=== PATIENT | male | born 1990 | race Caucasian/White ===

== ENCOUNTER 2022-10-21 05:24 | Day surgery (SDC) | payer OTHER ==
[~2022-10-21 05:24] MED LIST: RINGERS SOLUTION,LACTATED 1,000 ML IV ONE
[2022-10-21] MEDS ORDERED: ETHYL ALCOHOL 62% ANTISEPTIC NASAL SANITIZER 0.6 ML AMPUL NASAL ONE (05:30)
[2022-10-21] MEDS ORDERED: SODIUM CL IRRIG SOLN BAG 9,000 ML IRRIG ONE (05:33)
[2022-10-21] MEDS ORDERED: SODIUM CL IRRIG SOLN BAG 3,000 ML IRRIG ONE (05:34)
[2022-10-21] MEDS ORDERED: LAMO25TA36 PO (05:45)
[2022-10-21] MEDS ORDERED: LEVE750T10 PO (05:45)
[2022-10-21] MEDS ORDERED: BUPIVACAINE/EPI/PF 0.5% 30 ML VIAL ONE (05:45)
[2022-10-21] MEDS ORDERED: DICL100G60 TP (05:45)
[2022-10-21] MEDS ORDERED: VANCOMYCIN HCL 1 GM/VIAL ONE (07:19)
[2022-10-21] MEDS ORDERED: MUPIROCIN CALCIUM 2% 22 GM OINTMENT ONE (07:20)
[2022-10-21] MEDS ORDERED: BUPIVACAINE LIPOSOME/PF 1.3%-13.3MG/ML SUSPENSION 10 ML VIAL INJ ONE (07:30)
[2022-10-21] MEDS ORDERED: BUPIVACAINE LIPOSOME/PF 1.3%-13.3MG/ML SUSPENSION 20 ML VIAL INJ ONE (07:30)
[2022-10-21] MEDS ORDERED: MEPERIDINE-PF 25 MG/ML VIAL IVP PRN (09:00)
[2022-10-21] MEDS ORDERED: MEPERIDINE-PF 25 MG/ML VIAL ONE (09:04)
[2022-10-21] MEDS ORDERED: FentaNYL CITRATE PF 100 MCG/2 ML VIAL ONE (09:07)
[2022-10-21] MEDS: FentaNYL CITRATE PF 100 MCG/2 ML VIAL IVP PRN ×2 (09:11→09:20)
[2022-10-21] MEDS ORDERED: HYDROmorphone HCL 2 MG/ML SYRINGE ONE (09:26)
[2022-10-21] MEDS: HYDROmorphone HCL 2 MG/ML SYRINGE IVP PRN ×6 (09:44→10:48)
[2022-10-21] MEDS ORDERED: CeFAZolin 1 GM/DEXTROSE 50 ML IV ONE ×2 (10:00→10:09)
[2022-10-21] MEDS ORDERED: HYDROCODONE/ACETAMINOPHEN 10-325 MG TABLET PO ONE (11:30)
[2022-10-21] MEDS ORDERED: ONDANSETRON HCL 4 MG/2 ML VIAL IVP ONE (12:00)
[2022-10-21] MEDS ORDERED: DEXAMETHASONE SOD PHOS 4 MG/ML VIAL IVP ONE (12:00)
[2022-10-21] MEDS ORDERED: SUGAMMADEX SODIUM 200 MG/2 ML VIAL IVP ONE (12:00)
[2022-10-21] MEDS ORDERED: PROPOFOL 1% 20 ML VIAL IVP ONE (12:00)
[2022-10-21] MEDS ORDERED: ACETAMINOPHEN/ISO-OSM 1000 MG/100 ML BOTTLE IV ONE (12:00)
[2022-10-21] MEDS ORDERED: 0.9% SODIUM CHLORIDE 10 ML VIAL IVP ONE (12:00)
[2022-10-21] MEDS ORDERED: MORPHINE SULFATE/PF 0.5 MG/ML 10 ML AMP IVP ONE (12:00)
[2022-10-21] MEDS ORDERED: CeFAZolin SODIUM 1 GM VIAL IVP ONE (12:00)
[2022-10-21] MEDS ORDERED: LIDOCAINE/PF 2% 5 ML VIAL IM ONE (12:00)
[2022-10-21] MEDS ORDERED: FentaNYL CITRATE PF 100 MCG/2 ML VIAL IVP ONE (12:00)
[2022-10-21] MEDS ORDERED: MIDAZOLAM HCL 2 MG/2 ML VIAL IVP ONE (12:00)
[2022-10-21] MEDS ORDERED: ROCURONIUM BROMIDE 10 MG/ML 5 ML VIAL IVP ONE (12:00)
[2022-10-21] MEDS ORDERED: KETOROLAC TROMETHAMINE 60 MG/2 ML VIAL IM ONE (12:00)
[2022-10-21] MEDS ORDERED: OXYGEN THERAPY IH SCH (20:00)
== END 2022-10-21 12:15 | disposition home or self-care (01) ==
LOC: SURGERY 05:24
PROVIDERS: ATTEND Orthopaedic Surgery
DX: S43.402A Unspecified sprain of left shoulder joint, initial encounter (principal); M65.812 Other synovitis and tenosynovitis, left shoulder; D16.02 Benign neoplasm of scapula and long bones of left upper limb; G89.29 Other chronic pain; M19.012 Primary osteoarthritis, left shoulder; X58.XXXA Exposure to other specified factors, initial encounter; Y93.89 Activity, other specified; Y92.89 Other specified places as the place of occurrence of the external cause; Y99.8 Other external cause status
CPT/HCPCS: 29823; 88305; 88311; 73030; J3490 ×3; J2704; J0690; J1100; J3010; J1170; J1885; J2175; J2250; J2274; J2405; J3370; Q9967; J7120; J0131; C9290; C1713